=== PATIENT | female | born 2000 | race Two or more races ===

== ENCOUNTER 2022-01-22 21:21 | Emergency (ER) | payer MEDICAID ==
[~2022-01-22] VITALS: Ht 170.2 cm; Wt 77.3 kg
[2022-01-22 21:32] VITALS: BP 114/75
[2022-01-22] MEDS ORDERED: SODIUM CHLORIDE 0.9% 1,000 ML IV ONE (22:45)
[2022-01-22 23:05] LABS: BASOPHILS % (AUTO) 0.6 % (0.0-2.0); HEMATOCRIT 36.3 % (36-46); HEMOGLOBIN 11.3 g/dL (12.0-16.0); LYMPHOCYTES # (AUTO) 3.4 K/uL (1.0-4.8); LYMPHOCYTES % (AUTO) 35.3 % (22.0-44.0); MEAN CORPUSCULAR HEMOGLOBIN 22.7 pg (26.0-34.0); MEAN CORPUSCULAR HGB CONC 31.3 G/dL (31.0-37.0); MEAN CORPUSCULAR VOLUME 73 fL (80-100); MONOCYTES # (AUTO) 0.6 K/uL (0.1-1.0); MONOCYTES % (AUTO) 6.6 % (2.0-9.0); NEUTROPHILS # (AUTO) 5.1 K/uL (1.8-7.7); NEUTROPHILS % (AUTO) 52.5 % (40.0-70.0); PLATELET COUNT (AUTO) 188 K/uL (150-450); RED BLOOD CELL COUNT(AUTO) 5.01 MIL/uL (4.00-5.20); RED CELL DISTRIBUTION WIDTH 17.9 % (11.5-14.5)
[2022-01-22 23:14] LABS: ANION GAP 3 mmol/L (8-16); CALCIUM, TOTAL 8.7 mg/dL (8.8-10.5); CARBON DIOXIDE 29 mmol/L (22-29); CHLORIDE 106 mmol/L (98-107); CREATININE 0.81 mg/dL (0.60-1.30); GLOMERULAR FILTR. RATE CALC > 60 mL/min (>60); GLUCOSE,RANDOM 92 mg/dL (70-110); POTASSIUM 3.3 mmol/L (3.5-5.1); SODIUM SERUM 138 mmol/L (136-145); UREA NITROGEN, BLOOD 9 mg/dL (7-18)
[2022-01-22 23:26] LABS: ALANINE AMINOTRANSFERASE 19 U/L (12-78); ALBUMIN 2.8 g/dL (3.4-5.0); ALKALINE PHOSPHATASE 114 U/L (46-116); ASPARTATE AMINOTRANSFERASE 12 U/L (15-37); BILIRUBIN,TOTAL 0.1 mg/dL (0.1-1.0); HCG,QUANTITATIVE < 1 mIU/mL (0-6); TOTAL PROTEIN, SERUM 6.1 g/dL (6.4-8.2)
[2022-01-23] MEDS ORDERED: MEDR5TAB5 PO (02:27)
== END 2022-01-23 02:43 | disposition home or self-care (01) ==
LOC: EMS 21:52
DX: N93.8 Other specified abnormal uterine and vaginal bleeding (principal); Z98.890 Other specified postprocedural states
CPT/HCPCS: 99284; 96360; 76856; 80053; 84702; 85025; 36415; 81025; J7030

== ENCOUNTER 2022-11-18 19:25 | Emergency (ER) | payer MEDICAID ==
[~2022-11-18] VITALS: Ht 175.3 cm; Wt 95.0 kg
[~2022-11-18 19:25] MED LIST: MEDR5TAB5 PO
[2022-11-18 19:35] VITALS: TEMP 99.2
[2022-11-18 20:23] LABS: BAND NEUTROPHILS % (MANUAL) 0 % (0-5)
[2022-11-18 20:26] LABS: HEMATOCRIT 36.8 % (36-46); HEMOGLOBIN 11.3 g/dL (12.0-16.0); MEAN CORPUSCULAR HEMOGLOBIN 21.5 pg (26.0-34.0); MEAN CORPUSCULAR HGB CONC 30.8 G/dL (31.0-37.0); MEAN CORPUSCULAR VOLUME 70 fL (80-100); PLATELET COUNT (AUTO) 229 K/uL (150-450); RED BLOOD CELL COUNT(AUTO) 5.27 MIL/uL (4.00-5.20); RED CELL DISTRIBUTION WIDTH 18.3 % (11.5-14.5)
[2022-11-18 20:36] LABS: ANION GAP 7 mmol/L (8-16); CALCIUM, TOTAL 8.4 mg/dL (8.8-10.5); CARBON DIOXIDE 28 mmol/L (22-29); CHLORIDE 102 mmol/L (98-107); CREATININE 0.85 mg/dL (0.60-1.30); GLOMERULAR FILTR. RATE CALC > 60 mL/min (>60); GLUCOSE,RANDOM 88 mg/dL (70-110); POTASSIUM 3.4 mmol/L (3.5-5.1); SODIUM SERUM 137 mmol/L (136-145)
[2022-11-18 20:52] LABS: EOSINOPHILS % (MANUAL) 4 % (1-6); LYMPHOCYTES % (MANUAL) 34 % (22-44); MONOCYTES % (MANUAL) 6 % (2-9); SEGMENTED NEUTROPHILS % 56 % (40-70)
[2022-11-18] MEDS ORDERED: HYDR-4808 PO (22:51)
[2022-11-18 23:24] LABS: COVID AG,FIA SOURCE NASAL SWAB
[2022-11-18 23:30] VITALS: BP 122/64; PULSE 90; RESP 18
== END 2022-11-19 00:03 | disposition home or self-care (01) ==
LOC: EMS 19:25
DX: F41.9 Anxiety disorder, unspecified (principal); R06.02 Shortness of breath; Z98.890 Other specified postprocedural states; Z20.822 Contact with and (suspected) exposure to COVID-19
CPT/HCPCS: 71045; 80048; 85007; 85027; 93005; 99285; 36415-L1; 36415-TC

== ENCOUNTER 2024-04-16 18:06 | Emergency (ER) | payer MEDICAID, OTHER ==
[~2024-04-16] VITALS: Ht 167.6 cm; Wt 104.5 kg
[~2024-04-16 18:06] MED LIST changes: +HYDR-4808 PO
[2024-04-16 18:21] VITALS: BP 116/53; PULSE 101; RESP 16; TEMP 97.7; O2SAT 98
[2024-04-16] MEDS ORDERED: LIDO700A15 TP (20:17)
[2024-04-16] MEDS ORDERED: ACET-3385 PO (20:17)
[2024-04-16] MEDS: ACETAMINOPHEN 500 MG TABLET PO ONE (20:25)
[2024-04-16] MEDS: LIDOCAINE 5% TRANSDERMAL PATCH TD ONE (20:26)
== END 2024-04-16 20:48 | disposition home or self-care (01) ==
LOC: EMS 18:06
DX: O26.891 Other specified pregnancy related conditions, first trimester (principal); S39.012A Strain of muscle, fascia and tendon of lower back, initial encounter; Z3A.01 Less than 8 weeks gestation of pregnancy
CPT/HCPCS: 99283